=== PATIENT | male | born 2000 | race African-American/Black ===

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

== ENCOUNTER 2021-06-11 22:34 | Emergency (ER) | payer MEDICAID, OTHER, SELFPAY | END 2021-06-11 23:04 | disposition home or self-care (01) | LOC: NAV ERS 22:34 | DX: M79.18 Myalgia, other site (principal); F17.210 Nicotine dependence, cigarettes, uncomplicated; X50.3XXA Overexertion from repetitive movements, initial encounter | CPT/HCPCS: 99283 ==